=== PATIENT | female | born 1945 | race Caucasian/White ===

== ENCOUNTER → 2017-12-11 | Day surgery (SDC) | payer MEDICARE ==
[~2017-12-11] VITALS: Ht 162.6 cm; Wt 71.1 kg
[~2017-12-11] MED LIST: *MEPERIDINE 25 MG INJ VIAL PERIprocedural Use ONLY ONE; *morphine SULFATE 4 MG/ML PERIprocedure ONLY ONE; ACETAMINOPHEN 1000 MG/100 ML 100 ML IV ONE; ALEN1TAB48 PO; BUPIVACAINE HCL PF 0.25% 30 ML VIAL ONE; BUPIVACAINE HCL PF 0.5% 30 ML VIAL ONE; BUPIVACAINE/EPINEPHRINE 0.5% PF 30 ML VIAL ONE; CHLORHEXIDINE GLUCONATE 2 % 1 PACK (2 CLOTHS) TOPICAL PRN; CHLORHEXIDINE GLUCONATE 4% SOLN 120 ML BTL TOPICAL SCH; DEXAMETHASONE SOD PHOS 4 MG/ML VIAL IV ONE; DICL1CAP3 PO; IBUP1TAB5 PO; LACTATED RINGER'S 1000 ML IV PRN; LIDOCAINE HCL 1% PF 5 ML SYRINGE OTHER ONE; LOVA20TA PO; METOPROLOL TARTRATE 25 MG TAB PO PRN; MIDAZOLAM HCL 2 MG/2 ML VIAL ONE; MORPHINE SULFATE 4 MG/ML INJ IV PUSH PRN; ONDANSETRON HCL 4 MG/2 ML VIAL IV ONE; ONDANSETRON ODT 4 MG TAB SL PRN; PERC5TAB12 PO; POVIDONE IODINE 5% (ANTISEPSIS KIT) 4 APPLICATIONS EACH NARE PRN; PROPOFOL 200 MG/20 ML AMP IV ONE; Post-op Orders (for Pharmacy) XX ONE; SODIUM CHLORID 0.9% 500 ML IV PRN; SODIUM CHLORIDE 0.9% FLUSH 10 ML FLUSH IV FLUSH PRN; SODIUM CHLORIDE 0.9% FLUSH 10 ML FLUSH IV FLUSH SCH; ceFAZolin 2 GM PREMIX 50 ML IV SCH; diphenhydrAMINE HCL 25 MG CAP PO PRN; oxyCODONE/ACETAMINOPHEN 5 MG/325 MG TAB PO PRN
--- NOTE | 2017-12-11 14:08 | PD.OP ---
cc: Cynthia Moseley MD Operative Report Date of Surgery: Dec 11, 2017 Preoperative Diagnosis: Closed left distal radius intra-articular 3 part fracture Postoperative Diagnosis: Same Procedure: Open reduction internal fixation left distal radius intra-articular 3 part fracture Surgeon: Cynthia Moseley [employer] Supervisor(s): None Operation and Findings: EBL: Minimal Specimens: None Complications: None Indications for procedure: Patient is a 72-year-old female presented to my clinic [place]. Patient was found to have a closed left distal radius intra-articular 3 part fracture. Options of management were discussed with the patient. Given the displacement of her fracture site in the intra-articular step-off, recommendation for surgical intervention in the form of open reduction internal fixation. Risks of surgery including but not limited to: Infection, nonunion or malunion, hardware malposition or failure, neurovascular injury, persistent wrist pain and/or stiffness, possible need for further surgery, and other unforeseen complications were all discussed with the patient. At this time she did elect to proceed with the above-mentioned procedure. Description of procedure: Patient was brought back to the operating room and placed supine on operating room table with all bony prominences well-padded. General anesthesia then ensued. A tourniquet was placed on the upper arm and patient was prepped and draped in standard sterile fashion. Preoperative antibiotics were given within 1 hour of incision. A timeout was performed to identify the correct patient, side, site and procedure to be performed. The arm was exsanguinated and the tourniquet inflated to 250 mmHg. A small volar incision was made over the distal radius with sharp dissection through the skin and subcutaneous tissue. The FCR tendon sheath was incised and the FCR tendon mobilized ulnarly. The floor of the FCR sheath was incised and pronator quadratus was elevated off the distal radius. The fracture was identified and cleaned. The fracture was reduced with the use of traction and volar tilt and a distal radius plate was then affixed and verified to be in appropriate position and height on AP and lateral radiographs. A cortical nonlocking screw was placed in the proximal aspect of the radius. Again, the distal radius plate was verified to be in appropriate position on AP and lateral radiographs. A K-wire was then placed into the through the plate and into the distal radius. Distal locking screws of appropriate length were then placed and verified to be in appropriate position and out of the joint surface. 2 more nonlocking cortical screws were then placed in the proximal aspect of the radius. Final radiographs were obtained which demonstrated the fracture was in acceptable alignment and hardware in appropriate position. The wound was thoroughly irrigated with normal saline laden with gentamicin. The tourniquet was deflated and hemostasis was achieved with electrocautery. The subcutaneous tissue was closed with 2-0 Vicryl suture. Half percent Marcaine with epinephrine was then utilized as local anesthetic and the skin was closed with subcuticular Monocryl sutures. Steri-Strips were then applied and sterile dressings followed by a splint. Patient was awoken from general anesthesia without complication. Disposition: Patient has been instructed to remain nonweightbearing to the left upper extremity. Splint is to remain in place and clean and dry until follow- up in approximately 2 weeks. Patient will be discharged from the postoperative area once criteria met. Cynthia Moseley MD Dec 11, 2017 14:08
[2017-12-11 16:30] VITALS: BP 155/88; PULSE 81; RESP 16; TEMP 98.3; O2SAT 98
--- NOTE | 2017-12-11 17:51 | RADRPT ---
EXAM DATE: 12/11/2017 4:49 PM EDT AGE/SEX: 72 years / Female INDICATIONS: Left wrist open reduction internal fixation. CLINICAL DATA: This is the patient's initial encounter. Patient reports that signs and symptoms have been present for 1 day and indicates a pain score of Nonresponsive. MEDICAL/SURGICAL HISTORY: Non-responsive. Non-responsive. COMPARISON: No prior exams available for comparison. FINDINGS: Limited 2 projection digital evaluation of the left wrist reveals plate and screw fixation of distal radial fracture with good positioning of the hardware and fracture reduction with anatomic alignment. CONCLUSION: Satisfactory operative appearance Electronically signed by: Trell Mccoy MD 12/11/2017 5:50 PM EDT
== END | disposition home or self-care (01) ==
LOC: HSDC 10:04
PROVIDERS: ATTEND Orthopaedic Surgery Orthopaedic Surgery of the Spine
DX: S52.572A Other intraarticular fracture of lower end of left radius, initial encounter for closed fracture (principal); W01.0XXA Fall on same level from slipping, tripping and stumbling without subsequent striking against object, initial encounter
CPT/HCPCS: 01830; 25609; 64415; 73100; 76000; C1713; J0131; J0690; J1100; J2175; J2250; J2270; J2405; J3010; J7120